=== PATIENT | female | born 1980 | race Asian ===

== ENCOUNTER 2023-07-04 17:31 | Emergency (ER) | payer OTHER ==
[~2023-07-04] VITALS: Ht 154.9 cm; Wt 56.8 kg
[2023-07-04] MEDS ORDERED: LORazepam 2 MG/ML VIAL IVP ONE ×2 (18:15→20:00)
[2023-07-04] MEDS ORDERED: LORazepam 2 MG/ML VIAL ONE (18:17)
[2023-07-04] MEDS ORDERED: PIPERACILLIN/TAZO 3.375 GM/D5W 50 ML IV ONE (19:00)
[2023-07-04] MEDS ORDERED: DEXTROSE 5%-0.45% SODIUM CHL 1,000 ML IV ONE (19:30)
[2023-07-04] MEDS ORDERED: ONDANSETRON HCL 4 MG/2 ML VIAL IVP ONE (20:00)
[2023-07-04 20:07] LABS: INR 2.2 (0.9-1.1); PROTHROMBIN TIME 21.9 SEC (9.4-11.6)
[2023-07-04 20:10] LABS: BASOPHILS % (AUTO) 1.6 % (0.0-2.0); EOSINOPHILS % (AUTO) 0.5 % (1.0-6.0); HEMATOCRIT 28.8 % (36-46); HEMOGLOBIN 8.8 g/dL (12.0-16.0); LYMPHOCYTES # (AUTO) 1.1 K/uL (1.0-4.8); LYMPHOCYTES % (AUTO) 9.9 % (22.0-44.0); MEAN CORPUSCULAR HEMOGLOBIN 39.4 pg (26.0-34.0); MEAN CORPUSCULAR HGB CONC 30.6 G/dL (31.0-37.0); MEAN CORPUSCULAR VOLUME 129 fL (80-100); MONOCYTES # (AUTO) 1.2 K/uL (0.1-1.0); NEUTROPHILS # (AUTO) 8.3 K/uL (1.8-7.7); PLATELET COUNT (AUTO) 82 K/uL (150-450); RED BLOOD CELL COUNT(AUTO) 2.23 MIL/uL (4.00-5.20); RED CELL DISTRIBUTION WIDTH 24.6 % (11.5-14.5); WHITE BLOOD COUNT (AUTO) 10.8 K/uL (4.5-11.0)
[2023-07-04 20:28] LABS: TROPONIN I-HIGH SENSITIVITY 17 ng/L (<51)
[2023-07-04 20:32] LABS: APPEARANCE,URINE CLEAR (CLEAR); COLOR,URINE YELLOW (YELLOW); GLUCOSE, URINE (UA) NEGATIVE (NEGATIVE); KETONES,URINE 80-100 mg/dL (NEGATIVE); LEUKOCYTE ESTERASE ,URINE NEGATIVE (NEGATIVE); NITRATE,URINE NEGATIVE (NEGATIVE); OCCULT BLOOD,URINE LARGE (NEGATIVE); PH,URINE 5.5 (5.0-8.0); PH,URINE DRUG SCREEN 5.5 (5.0-8.0); PROTEIN,URINE TRACE mg/dL (NEGATIVE); SPECIFIC GRAVITIY, URINE 1.015 (1.003-1.030); UROBILINOGEN,URINE <=1.0 mg/dL (<=1.0)
[2023-07-04 20:34] LABS: BILIRUBIN,URINE SMALL (NEGATIVE)
[2023-07-04 20:38] LABS: AMMONIA < 10 umol/L (11-32)
[2023-07-04 20:41] LABS: BACTERIA,URINE Rare /HPF (None Seen); WBC,URINE 0-2 /HPF (0-5)
[2023-07-04 20:43] LABS: ALCOHOL, URINE DRUG SCREEN POSITIVE (NEGATIVE); AMPHET/METH SCREEN,URINE NEGATIVE (NEGATIVE); BARBITURATE SCREEN, URINE NEGATIVE (NEGATIVE); BENZODIAZEPINES SCREEN,URINE NEGATIVE (NEGATIVE); CANNABINOID SCREEN,URINE POSITIVE (NEGATIVE); COCAINE SCREEN,URINE NEGATIVE (NEGATIVE); METHADONE SCREEN, URINE NEGATIVE (NEGATIVE); OPIATE SCREEN,URINE NEGATIVE (NEGATIVE); PHENCYCLIDINE SCREEN,URINE NEGATIVE (NEGATIVE)
[2023-07-04 20:46] LABS: ALANINE AMINOTRANSFERASE 43 U/L (12-78); ALBUMIN 2.4 g/dL (3.4-5.0); ALKALINE PHOSPHATASE 135 U/L (46-116); ANION GAP 34 mmol/L (8-16); ASPARTATE AMINOTRANSFERASE 117 U/L (15-37); BILIRUBIN,TOTAL 18.2 mg/dL (0.1-1.0); CALCIUM, TOTAL 8.1 mg/dL (8.8-10.5); CHLORIDE 94 mmol/L (98-107); CREATINE KINASE, TOTAL ONLY 109 U/L (26-192); CREATININE 0.38 mg/dL (0.60-1.30); GLOMERULAR FILTR. RATE CALC > 60 mL/min (>60); GLUCOSE,RANDOM 104 mg/dL (70-110); POTASSIUM 3.2 mmol/L (3.5-5.1); SODIUM SERUM 135 mmol/L (136-145); TOTAL PROTEIN, SERUM 7.4 g/dL (6.4-8.2); UREA NITROGEN, BLOOD 6 mg/dL (7-18)
[2023-07-04 20:49] LABS: CARBON DIOXIDE 7 mmol/L (22-29)
[2023-07-04 20:54] LABS: COVID AG,FIA SOURCE NASAL SWAB
[2023-07-04 21:10] LABS: SARS-COV2 (COVID) ANTIGEN,FIA Negative (Negative)
[2023-07-04 21:14] LABS: RBC MORPHOLOGY COMMENT ABNORMAL RBC MORPH
[2023-07-04 21:33] LABS: LACTIC ACID 18.3 mmol/L (0.4-2.0)
[2023-07-04] MEDS ORDERED: ROCURONIUM BROMIDE 10 MG/ML 5 ML VIAL IVP ONE (21:45)
[2023-07-04] MEDS ORDERED: ETOMIDATE 2 MG/ML 10 ML VIAL IVP ONE (21:45)
[2023-07-04] MEDS ORDERED: SODIUM CHLORIDE 0.9% 1,150 ML IV ONE (21:45)
[2023-07-04] MEDS ORDERED: SODIUM CHLORIDE 0.9% 1,700 ML IV ONE (21:45)
[2023-07-04 21:54] LABS: ABG BASE EXCESS -23.2 mmol/L (-2.0-3.0); ABG CARBOXYHEMOGLOBIN 2.6 % (0.0-1.5); ABG METHEMOGLOBIN 0.8 % (0.0-1.5); ABG OXYGEN CONTENT 9.5 mL/dL (15.0-23.0); ABG OXYGEN SATURATION 91.2 % (95.0-98.0); ABG OXYHEMOGLOBIN 88.1 % (94.0-100.0); PO2, ARTERIAL BG 82.4 mmHg (88.0-96.0); SOURCE, BLOOD GAS ARTERIAL; TEMPERATURE, FAHRENHEIT, BG 97.9 FAHREN (96.0-98.6)
[2023-07-04] MEDS ORDERED: MIDAZOLAM HCL 100 MG in SODIUM CHLORIDE 0.9% 180 ML IV PRN (22:00)
[2023-07-04 22:15] VITALS: PULSE 112; RESP 16; O2SAT 99
[2023-07-04] MEDS ORDERED: SODIUM BICARBONATE [ADULT] 8.4% 50 MEQ/50 ML SYRINGE IVP ONE (22:15)
[2023-07-04 22:28] LABS: ABG HCO3 8.2 mmol/L (22.0-26.0); ABG PCO2 16 mmHg (35-45); ABG PH 7.156 (7.35-7.450); ABG TOTAL HEMOGLOBIN 7.5 G/dL (12.0-18.0); ALLEN TEST, BLOOD GAS Positive; SITE, BLOOD GAS RT RADIAL
[2023-07-04 22:29] LABS: ABG A-A DIFF O2 48.2 mmHg (10-20.0); O2 DEVICE,BLOOD GAS ROOM AIR (ROOM AIR)
[2023-07-04] MEDS ORDERED: NOREPINEPHRINE 8 MG/0.9 % NACL 250 ML IV ONE (22:36)
[2023-07-04] MEDS ORDERED: NOREPINEPHRINE 8 MG/0.9 % NACL 250 ML IV PRN (22:45)
[2023-07-04] MEDS ORDERED: PANTOPRAZOLE SODIUM 80 MG in SODIUM CHLORIDE 0.9% 100 ML IV SCH (23:15)
[2023-07-04] MEDS ORDERED: PANTOPRAZOLE SODIUM 40 MG/VIAL IVP ONE (23:15)
[2023-07-04 23:50] LABS: ABG BASE EXCESS -19.8 mmol/L (-2.0-3.0); ABG CARBOXYHEMOGLOBIN 2.5 % (0.0-1.5); ABG HCO3 10.2 mmol/L (22.0-26.0); ABG OXYGEN CONTENT 9.1 mL/dL (15.0-23.0); ABG OXYGEN SATURATION 98.9 % (95.0-98.0); ABG OXYHEMOGLOBIN 95.4 % (94.0-100.0); ABG PCO2 31 mmHg (35-45); PO2, ARTERIAL BG 143.6 mmHg (88.0-96.0); SOURCE, BLOOD GAS ARTERIAL; TEMPERATURE, FAHRENHEIT, BG 95.4 FAHREN (96.0-98.6)
[2023-07-05 00:07] LABS: ABG PH 7.112 (7.35-7.450)
[2023-07-05 00:08] LABS: ABG A-A DIFF O2 542.4 mmHg (10-20.0); ABG TOTAL HEMOGLOBIN 6.5 G/dL (12.0-18.0); ALLEN TEST, BLOOD GAS Positive; O2 DEVICE,BLOOD GAS VENT (ROOM AIR); PEEP,BG 5 cm H2O; SITE, BLOOD GAS RT RADIAL; VT, ABG 400 ml
[2023-07-05 01:21] LABS: BASOPHILS % (AUTO) 0.7 % (0.0-2.0); EOSINOPHILS % (AUTO) 0.1 % (1.0-6.0); LYMPHOCYTES # (AUTO) 0.8 K/uL (1.0-4.8); LYMPHOCYTES % (AUTO) 9.7 % (22.0-44.0); MEAN CORPUSCULAR HEMOGLOBIN 38.8 pg (26.0-34.0); MEAN CORPUSCULAR HGB CONC 29.8 G/dL (31.0-37.0); MEAN CORPUSCULAR VOLUME 130 fL (80-100); MONOCYTES # (AUTO) 0.9 K/uL (0.1-1.0); MONOCYTES % (AUTO) 11.5 % (2.0-9.0); NEUTROPHILS # (AUTO) 6.3 K/uL (1.8-7.7); PLATELET COUNT (AUTO) 58 K/uL (150-450); RED BLOOD CELL COUNT(AUTO) 1.53 MIL/uL (4.00-5.20); RED CELL DISTRIBUTION WIDTH 24.7 % (11.5-14.5); WHITE BLOOD COUNT (AUTO) 8.1 K/uL (4.5-11.0)
[2023-07-05 01:25] VITALS: PULSE 106; RESP 16; O2SAT 97
[2023-07-05 02:07] LABS: RBC MORPHOLOGY COMMENT ABNORMAL RBC MORPH
[2023-07-05 02:15] VITALS: BP 98/47; PULSE 108; RESP 16; TEMP 95.9
[2023-07-05 02:30] VITALS: BP 98/47; PULSE 107; RESP 16; TEMP 95.9
== END 2023-07-05 03:34 | disposition short-term general hospital (02) ==
LOC: EMS 17:32
DX: A41.9 Sepsis, unspecified organism (principal); K72.90 Hepatic failure, unspecified without coma; E87.20 Acidosis, unspecified; J96.90 Respiratory failure, unspecified, unspecified whether with hypoxia or hypercapnia; K92.2 Gastrointestinal hemorrhage, unspecified; Z20.822 Contact with and (suspected) exposure to COVID-19
CPT/HCPCS: 99291; 36430; 70450; 31500; 96365; 71045; 96366; 96375; 96367; 96361; 87426; 80053; 82140; 82550; 83605; 84484; 84703; 85025; 85610; 85730; 87040; 86850; 86900; 86901; 86923; 82805; 36600; 74176; 93005; 51702; 96376; 80307; 81001; 36415; P9016; J3490 ×3; J2060; J2250; J2405; C9113; J2543; Q9967; J7030; J7050 ×2; 94002; 99285